=== PATIENT | female | born 1985 | race Caucasian/White ===

== ENCOUNTER 2024-10-23 06:00 | Inpatient (IN) | payer BC ==
[2024-10-23] MEDS ORDERED: LIDOCAINE 0.5% (PF) 5 MG/ML (50 ML SDV) SQ PRN (06:17)
[2024-10-23] MEDS ORDERED: TERBUTALINE 1 MG/ML VIAL SQ PRN (06:17)
[2024-10-23] MEDS ORDERED: TRANEXAMIC 1,000 MG/100ML-NACL 1,000 MG in EMPTY BAG 1 BAG IV PRN (06:17)
[2024-10-23] MEDS ORDERED: miSOPROStoL 200 MCG TAB RECTAL PRN (06:17)
[2024-10-23] MEDS ORDERED: OXYTOCIN 10 UNIT/ML 1 ML VIAL IM PRN (06:17)
[2024-10-23] MEDS ORDERED: CARBOPROST TROMETHAMINE 250 MCG/ML 1 ML AMP IM PRN (06:17)
[2024-10-23] MEDS ORDERED: miSOPROStoL 200 MCG TAB PO PRN (06:17)
[2024-10-23] MEDS ORDERED: METHYLERGONOVINE 0.2 MG/ML 1 ML AMP IM PRN (06:17)
[2024-10-23 06:55] LABS: Basophils # (A) 0.1 k/uL (0-0.2); Basophils % (A) 1 %; Eosinophils # (A) 0.2 k/uL (0-0.7); Eosinophils % (A) 2 %; HCT 34.3 % (34.0-46.0); Lymphocytes # (A) 2.2 k/uL (1.0-4.8); Lymphocytes % (A) 19 %; MCH 30.5 pg (25.0-35.0); MCV 95.4 fL (80.0-100.0); Mean Platelet Volume 9.9; Monocytes # (A) 0.7 k/uL (0-1.0); Monocytes % (A) 6 %; Neutrophils # (A) 7.7 k/uL (1.3-7.7); Neutrophils % (A) 69 %; Platelet Count 237 k/uL (150-450); RBC 3.59 m/uL (3.80-5.40); RDW 14.1 % (11.5-15.5); WBC 11.2 k/uL (3.8-10.6)
[2024-10-23] MEDS: LACTATED RINGERS 1,000 ML IV SCH (08:48)
[2024-10-23] MEDS: OXYTOCIN 30 UNITS/500 ML NS 30 UNIT in SALINE 1 500ML.BAG IV SCH (08:49)
--- NOTE | 2024-10-23 18:01 | P.HPOB ---
History of Present Illness H&P Date: 10/23/24 Chief Complaint: IUP at 40 and 1 sevenths weeks, oligohydramnios This is a 38-year-old at 40 and 1 sevenths weeks that presents for induction of labor secondary to oligohydramnios. Patient was seen yesterday for routine visit where ultrasound was performed. Estimated weight of 8 pounds 12 ounces, SHI of 5. Patient was counseled on results and need for induction of labor secondary to postdates and oligohydramnios. Patient presented to labor and delivery this morning for presumed Dilapan insertion. Patient was unable to tolerate speculum exam therefore Pitocin was begun. Patient is now noting contractions that are uncomfortable in nature. She denies loss of fluid. She denies vaginal bleeding. She is noting good movement. Review of Systems Constitutional: Denies chills, Denies fatigue, Denies fever Ears, nose, mouth and throat: Denies headache Cardiovascular: Reports leg edema Respiratory: Denies dyspnea Gastrointestinal: Denies nausea, Denies vomiting Genitourinary: Reports Past Medical History Past Medical History: No Reported History History of Any Multi-Drug Resistant Organisms: None Reported Past Surgical History: No Surgical Hx Reported Past Anesthesia/Blood Transfusion Reactions: No Reported Reaction Past Psychological History: No Psychological Hx Reported Smoking Status: Vaper Past Alcohol Use History: None Reported Past Drug Use History: None Reported Medications and Allergies Home Medications Medication Instructions Recorded Confirmed Type Vit No.179/Iron/Folic 10/23/24 History [ Tablet] Allergies Allergy/AdvReac Type Severity Reaction Status Date / Time No Known Allergies Allergy Verified 10/23/24 06:15 Exam Osteopathic Statement: *. No significant issues noted on an osteopathic structural exam other than those noted in the History and Physical/Consult. Intake and Output 10/23/24 10/23/24 10/23/24 06:59 14:59 22:59 Other: # Voids 2 Weight 109.316 kg Targeted physical exam is performed this date General Is a well-nourished well- developed female in no acute distress, breathing is nonlabored, heart has a regular rate and rhythm, abdomen is gravid, heart tones noted to be category 1 she is currently toribio every 2 to 3 minutes Pitocin is at 30 milliunits. Cervical exam she is noted to be fingertip/50/-3 station patient was noted to be vertex presentation on ultrasound yesterday (On initial admission this morning speculum exam was performed cervix was visualized posterior nature closed, cervix was washed with Betadine, nitrous was used to attempt analgesia during exam, patient was unable to tolerate therefore procedure was abandoned.) Results Result Diagrams: 10/23/24 06:25 Abnormal Lab Results - Last 24 Hours (Table) 10/23/24 Range/Units 06:25 WBC 11.2 H (3.8-10.6) k/uL RBC 3.59 L (3.80-5.40) m/uL Hgb 11.0 L (11.4-16.0) gm/dL Assessment and Plan (1) Post-dates Current Visit: Yes Status: Acute Code(s): O48.0 - POST-TERM SNOMED Code(s): 02494009 (2) Oligohydramnios Current Visit: Yes Status: Acute Code(s): O41.00X0 - OLIGOHYDRAMNIOS, UNSP TRIMESTER, NOT APPLICABLE OR UNSP SNOMED Code(s): 82644493 Plan: 38-year-old G1, P0 at 40 and 1 sevenths weeks presents for induction of labor secondary to postdates and oligohydramnios. Patient was admitted attempted D ilapan, patient was unable to tolerate therefore procedure was abandoned. Was counseled on options, given her inability to tolerate vaginal exams Pitocin induction of labor was begun. Unable to perform amniotomy given lack of cervical dilation. Will continue with current Pitocin dose, Nubain as needed. Patient did use nitrous during attempted Dilapan insertion with no relief of discomfort. Patient does desire epidural when appropriate.
[2024-10-23] MEDS: NALBUPHINE 10 MG/ML (10 ML MDV) IV PRN (22:16)
[2024-10-24] MEDS ORDERED: TRANEXAMIC 1,000 MG/100ML-NACL 1,000 MG in EMPTY BAG 1 BAG IV PRN (12:59)
--- NOTE | 2024-10-24 12:59 | P.PN ---
Progress Note - Text Progress Note Date: 10/24/24 38-year-old G1, P0 at 40-2/7 weeks that was admitted yesterday for induction of labor secondary to postdates and oligohydramnios. Patient had an ultrasound in the office revealing an estimated weight of 8 pounds 12 ounces, SHI of 5. Patient was initially counseled on Dilapan insertion. Patient was unable to tolerate this procedure therefore after further discussion patient elected Pitocin for induction of labor. Patient underwent Pitocin induction of labor throughout the day and evening. 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 Patient has been comfortable through the day and made no further cervical change. Patient is currently requesting primary C- section secondary to failed induction. Anesthesia will be notified. Will plan to proceed with primary .
[2024-10-24] MEDS: LACTATED RINGERS 500 ML IV SCH (16:00)
[2024-10-24] MEDS ORDERED: ONDANSETRON 4 MG/2 ML VIAL ONE (16:40)
[2024-10-24] MEDS ORDERED: NALBUPHINE (ANES) 10 MG/ML - 1 ML AMP ONE (16:40)
[2024-10-24] MEDS ORDERED: OXYTOCIN 30 UNITS/500 ML NS BAG IV ONE (16:40)
[2024-10-24] MEDS ORDERED: MORPHINE SULFATE (PF) 0.3 MG/0.3 ML SYR ONE (16:40)
[2024-10-24] MEDS: CITRIC ACID-SODIUM CITRATE 15 ML CUP PO ONE (17:30)
[2024-10-24] MEDS ORDERED: diphenhydrAMINE 50 MG/ML 1 ML VIAL IVP PRN ×2 (17:40)
[2024-10-24] MEDS ORDERED: ONDANSETRON 4 MG/2 ML VIAL IVP PRN (17:40)
[2024-10-24] MEDS ORDERED: ZOLPIDEM 5 MG TAB PO PRN (17:40)
[2024-10-24] MEDS ORDERED: METOCLOPRAMIDE 5 MG/ML 2 ML VIAL IVP PRN (17:40)
[2024-10-24] MEDS ORDERED: SIMETHICONE 80 MG CHEWABLE PO PRN (17:40)
[2024-10-24] MEDS ORDERED: diphenhydrAMINE 25 MG CAP PO PRN (17:40)
[2024-10-24] MEDS ORDERED: diphenhydrAMINE 50 MG CAP PO PRN (17:40)
[2024-10-24] MEDS ORDERED: NALOXONE 0.4 MG/ML 1 ML VIAL IV PRN (17:40)
--- NOTE | 2024-10-24 17:40 | P.OP ---
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 Patient had an ultrasound the day prior revealing an weight of 8 pounds 12 ounces, amniotic fluid index of 5. Patient was admitted to labor and delivery and failed the Dilapan insertion, secondary to discomfort.'s were reviewed and she declined Cervidil, Pitocin induction of labor was begun. Patient progressed through the day with minimal discomfort. Around 5 PM patient was noted to be uncomfortable and on cervical exam she was noted to be fingertip/50/-3 station. 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 She did receive Nubain x 1. Category 2 heart tones were noted around midnight, 1 AM therefore Pitocin was shut off for approximately 2 hours and restarted. Patient has not made change for greater than 24 hours. Patient was counseled on options including continuing with an induction induction, placement of Cervidil,vs section. Patient elected section. Multiple questions were answered patient and patient's family. Operative Findings: Viable female delivered at 704, weight of 7 pounds 6 ounces, Apgars of 8 and 9 at 1 and 5 minutes respectively. Description of Procedure: The patient was prepped and draped in the usual fashion after spinal anesthesia was administered by anesthesia department. A Pfannenstiel incision was made and extended of the abdominal cavity without difficulty. The bladder peritoneum was elevated and incised and reflected distally. A 2 cm incision was made in the transverse plane of the lower uterine segment to enter the uterus at which time clear fluid was noted. The incision was extended in both directions using the bandage scissors. The head was encountered within the field and delivered up and through the incision where the nose and mouth were thoroughly suctioned. Remainder of the infant was delivered onto the surgical field where the cord was doubly clamped, cut, and the was passed for resuscitative measures with weight and Apgars as noted above. The placenta was delivered manually, intact, and was grossly normal with a grossly normal three-vessel cord. The [place] was exteriorized and the interior cavity of the uterus swept of any remaining placental and membranous fragments with a laparotomy sponge. The margins of the incision were grasped with Arias clamps and the incision closed in 2 layers. First layer was a running locking layer of 0 Vicryl from margin to margin followed by a second layer of imbricating 0 Vicryl from margin to margin. Midportion of the hysterotomy incision was noted to be bleeding therefore a [id number] suture was used to obtain hemostasis. Any small points of bleeding were then made hemostatic with the Bovie. Once hemostasis was achieved, the posterior cul-de-sac was suctioned with a guard and the uterine and ovarian findings are as noted above. The uterus was replaced within the abdominal cavity and the gutters swept of any remaining blood fluid or clot. The incision was again reexamined and hemostasis was noted to be excellent. Any small point of bleeding were made hemostatic with the Bovie. Once h emostasis was achieved the parietal peritoneum was loosely reapproximated. The layer of muscles were examined and made hemostatic with the Bovie. Attention was then turned to the fascia which was closed with 2 running stitches of 0 Vicryl proceeding from the lateral margins to the midpoint. The subcutaneous tissues were irrigated, made hemostatic with the Bovie, and reapproximated with a running stitch of 30 plain catgut. The skin was reapproximated with 4-0 Vicryl. Estimated blood loss for the case was approximately 472 mL. All sponge instrument and needle counts are correct. There were no complications. The patient tolerated the procedure well and proceeded to the recovery room in stable condition. Both mother and infant are resting comfortably in recovery.
[2024-10-24] MEDS: LACTATED RINGERS 1,000 ML IV SCH (18:22)
[2024-10-24] MEDS: ACETAMINOPHEN IV (For NPO) 1,000 MG in EMPTY BAG 1 BAG IVPB ONE (21:03)
[2024-10-24] MEDS: SENNOSIDES-DOCUSATE SODIUM 1 EACH TAB PO SCH (21:04)
[2024-10-25] MEDS: IBUPROFEN IV 800 MG in SODIUM CHLORIDE 0.9% 250 ML IV ONE (00:51)
[2024-10-25] MEDS: IBUPROFEN 800 MG TAB PO SCH (05:12)
[2024-10-25] MEDS: ACETAMINOPHEN TAB 500 MG TAB PO SCH (05:14)
[2024-10-25 05:24] LABS: Basophils # (A) 0.1 k/uL (0-0.2); Basophils % (A) 1 %; Eosinophils # (A) 0.1 k/uL (0-0.7); Eosinophils % (A) 1 %; HCT 29.9 % (34.0-46.0); Lymphocytes # (A) 1.6 k/uL (1.0-4.8); Lymphocytes % (A) 18 %; MCH 31.6 pg (25.0-35.0); MCHC 33.3 g/dL (31.0-37.0); MCV 94.8 fL (80.0-100.0); Mean Platelet Volume 10.1; Monocytes # (A) 0.5 k/uL (0-1.0); Monocytes % (A) 6 %; Neutrophils # (A) 6.4 k/uL (1.3-7.7); Neutrophils % (A) 72 %; Platelet Count 200 k/uL (150-450); RBC 3.16 m/uL (3.80-5.40); RDW 14.2 % (11.5-15.5); WBC 8.9 k/uL (3.8-10.6)
--- NOTE | 2024-10-25 09:16 | P.PN ---
Progress Note - Text 621am 10/25/24 38-year-old female status post with spinal Duramorph. Patient seen and evaluated for postop pain control, she has a VAS of 2 with no complaints of nausea vomiting or pruritus. Patient is doing very well
--- NOTE | 2024-10-25 10:57 | P.PNOBGPC ---
Subjective - Subjective Principal diagnosis: Postop day 1, primary Interval history: Patient is doing well this morning. She is ambulating and voiding without difficulty. She is tolerating a regular diet without nausea or vomiting. She denies concerns. Patient reports: Reports appetite normal, Reports voiding normally, Reports pain well controlled, Reports ambulating normally : doing well Objective - Vital Signs Latest vital signs: Vital Signs Temp Pulse Resp BP Pulse Ox 10/25/24 08:15 98.6 F 70 16 131/82 96 10/25/24 00:00 97.4 F L 86 16 101/62 98 10/24/24 19:34 98.3 F 77 16 130/61 96 10/24/24 19:19 79 16 140/69 98 10/24/24 19:04 75 16 123/67 99 10/24/24 18:49 74 16 143/79 99 10/24/24 18:19 98.3 F 70 16 134/63 97 10/24/24 18:04 74 16 135/70 98 10/24/24 17:49 89 16 127/77 98 10/24/24 17:34 97.7 F 93 18 111/56 97 Intake and Output 10/24/24 10/25/24 10/25/24 22:59 06:59 14:59 Intake Total 150 Output Total 1225 500 500 Balance -1225 -350 -500 Intake: Oral 150 Output: Urine 700 500 500 Output, Quantitative 525 Blood Loss Other: Voiding Method Indwelling Catheter Indwelling Catheter # Voids 1 - Exam Extremities: Present: normal, edema Abdomen: Present: normal appearance, soft Incision: Present: normal, dry, intact Uterus: Present: normal, firm - Labs Labs: Abnormal Lab Results - Last 24 Hours (Table) 10/25/24 Range/Units 05:08 RBC 3.16 L (3.80-5.40) m/uL Hgb 10.0 L (11.4-16.0) gm/dL Hct 29.9 L (34.0-46.0) % Assessment and Plan (1) Post-dates Current Visit: Yes Status: Acute Code(s): O48.0 - POST-TERM SNOMED Code(s): 14724812 (2) Oligohydramnios Current Visit: Yes Status: Acute Code(s): O41.00X0 - OLIGOHYDRAMNIOS, UNSP TRIMESTER, NOT APPLICABLE OR UNSP SNOMED Code(s): 05655264 (3) Status post primary low transverse section Current Visit: Yes Status: Acute Code(s): Z98.891 - HISTORY OF UTERINE SCAR FROM PREVIOUS SURGERY SNOMED Code(s): 590204798 Plan: 38-year-old 1 para 1 status post primary section. Patient is doing well postoperatively. Continue routine care, anticipate discharge home tomorrow
[2024-10-26 08:54] VITALS: BP 135/89; PULSE 73; RESP 16; TEMP 98.3
--- NOTE | 2024-10-26 09:29 | P.DS ---
Providers Date of admission: 10/23/24 06:00 Expected date of discharge: 10/26/24 Attending physician: Vilma Hatfield Primary care physician: Stated None Hospital Course: Ms. Hayes is a 38 year old now POD#2 s/p primary after failed induction of labor for post-dates and oligohydramnios. Her was uncomplicated and her course has been routine. The patient is doing well this morning and had no acute events overnight. She has no complaints this morning. She reports minimal lochia, passing flatus, voiding without difficulty, ambulating, and eating/drinking without nausea or vomiting. doing well at bedside. She denies chest pain, shortness of breathing, fevers, or chills overnight. She denies pain or swelling in the legs. Postoperative restrictions are reviewed with the patient including pelvic rest for 6 weeks, no lifting heavier than 15 pounds for 6 weeks. The patient is encouraged to call the office if she experiences any heavy bleeding, foul-smelling discharge, breast complaints, or any if she has any other concerns. She will follow up in the office with Dr. Hatfield in 2 weeks for postoperative exam. She plans to use Motrin and Tylenol as needed OTC. All questions are answered. Assessment: 38 year old now POD#2 s/p primary for failed medical induction of labor Patient Condition at Discharge: Good Plan - Discharge Summary New Discharge Prescriptions: No Action Vit No.179/Iron/Folic [ Tablet] Discharge Medication List Vit No.179/Iron/Folic [ Tablet] 10/23/24 [History] Follow up Appointment(s)/Referral(s): Vilma Hatfield DO [Doctor of Osteopathic Medicine] - 12/04/24 1:00 pm Activity/Diet/Wound Care/Special Instructions: Instructions 1. Do not begin any exercise program for 3 weeks. 2. Do not resume sexual relations for 6 weeks or longer if uncomfortable. 3. You may take tub baths or showers at any time. 4. You may use tampons if desired after 6 weeks. 5. Keep any areas repaired with stitches clean and dry. 6. If you are not nursing, wear a good fitting, supportive bra during the day and limit fluid intake for at least 1 week to prevent breast engorgement. 7. Call the office, , within the next week to make appointment for your 6 week checkup if it has not already been made. 8. Report any of the following occurrences to the doctor promptly: a. Heavy, excessive bleeding b. Chills, fever c. Burning or frequency of urination d. Pain or redness and breasts if nursing e. Increasing pain or swelling of vulva (stitches). In addition to the above instructions, the following additional should be followed: 1. No heavy lifting or straining (exercising) until after 6 week checkup. 2. Keep abdominal incision clean and dry: You may wear a dressing if more comf ortable. 3. Make office appointment for 2 weeks after delivery date. Discharge Disposition: HOME SELF-CARE
== END 2024-10-26 12:04 | disposition home or self-care (01) | DRG 787 ==
LOC: 4FBP 06:00
PROVIDERS: ADMIT Obstetrics & Gynecology Obstetrics; ATTEND Obstetrics & Gynecology Obstetrics
PROC: 3E033VJ Introduction of Other Hormone into Peripheral Vein, Percutaneous Approach (ICD-10-PCS; 2024-10-23)
PROC: 10D00Z1 Extraction of Products of Conception, Low, Open Approach (ICD-10-PCS; principal; 2024-10-24 16:00)
DX: O48.0 Post-term pregnancy (principal); O41.03X0 Oligohydramnios, third trimester, not applicable or unspecified; O76 Abnormality in fetal heart rate and rhythm complicating labor and delivery; O61.0 Failed medical induction of labor; Z53.8 Procedure and treatment not carried out for other reasons; Z37.0 Single live birth; Z3A.40 40 weeks gestation of pregnancy
CPT/HCPCS: 85025; 86850; 86900; 86901